=== PATIENT | female | born 1970 | race Two or more races ===

== ENCOUNTER → 2016-06-03 | Outpatient (CLI) | payer OTHER | LOC: FIMAGING 13:23 | DX: Z12.31 Encounter for screening mammogram for malignant neoplasm of breast (principal) | CPT/HCPCS: G0202 ==

== ENCOUNTER → 2017-08-04 | Outpatient (CLI) | payer OTHER | LOC: FIMAGING 15:02 | DX: Z12.31 Encounter for screening mammogram for malignant neoplasm of breast (principal) ==